=== PATIENT | male | born 1945 | race Caucasian/White ===

== ENCOUNTER → 2017-04-23 | Outpatient (CLI) | payer MEDICARE, OTHER ==
--- NOTE | 2017-04-23 10:52 | RAD ---
2 view CXR: Clinical indications: Chest pain for 10 weeks. Productive cough. Shortness of breath. Comparison: February 05, 2013. Findings: Chronic scarring and pleural thickening is seen laterally on the left side. No acute lung infiltrate or pleural effusion or pulmonary edema or pneumothorax is seen. The heart size is mildly enlarged but stable. Mediastinum and pulmonary vasculature and both iraj are unchanged. The osseous structures are intact. IMPRESSION: Stable chest x-ray. Stable cardiomegaly. No acute lung infiltrate.
== END | disposition home or self-care (01) ==
LOC: PMG 10:09
PROVIDERS: ATTEND Physician Assistant
DX: R07.81 Pleurodynia (principal); R05 Cough; R06.02 Shortness of breath; I51.7 Cardiomegaly
CPT/HCPCS: 71046

== ENCOUNTER → 2020-05-04 | Outpatient (CLI) | payer MEDICARE ==
--- NOTE | 2020-05-04 16:13 | RAD ---
EXAM: Chest, 2 views. HISTORY: Shortness of breath. Dyspnea. Cough. COMPARISON: 04/23/2017 FINDINGS: 2 views of the chest are obtained. There is diffuse left greater than right lung interstiti al infiltrate superimposed on chronic interstitial changes. There is suspected bilateral pleural thic kening. No convincing pleural effusion is seen. There is a stable cardiac silhouette. There is no pne umothorax. IMPRESSION: Diffuse left greater than right lung infiltrate superimposed on chronic interstitial muniz ges. Electronically signed by: Jayde Nunez MD (05/04/2020 4:11 PM) [email or web address]
== END ==
LOC: PMG 11:12
PROVIDERS: ATTEND Physician Assistant
DX: R05 Cough (principal); R06.02 Shortness of breath; R06.00 Dyspnea, unspecified
CPT/HCPCS: 71046